=== PATIENT | female | born 1930 | race Caucasian/White ===

== ENCOUNTER 2016-06-26 08:25 | Inpatient (IN) | payer OTHER ==
--- NOTE | 2016-06-22 11:27 | EKG Report ---
Test Performed on : 06/22/2016 09:42:52 AM Test Reason : PAT Blood Pressure : / mmHG Vent. Rate : 069 BPM Atrial Rate : 069 BPM P-R Int : 208 ms QRS Dur : 102 ms QT Int : 394 ms P-R-T Axes : 055 023 051 degrees QTc Int : 422 ms Sinus rhythm. with frequent premature ventricular complexes. in a pattern of bigeminy. Otherwise normal ECG When compared with ECG of 03-OCT-2010 12:47, premature ventricular complexes. are now present Confirmed by Fer BORJA, Ricardo Majano ([id number]) on 06/23/2016 8:23:53 AM
[2016-08-15 09:38] LABS: MANUAL DIFF NEEDED? NO
[2016-08-15 09:42] LABS: BASO% 0.9 % (0.0-0.8); EOS# 0.19 X1000 (0.0-0.7); EOS% 2.4 % (0.0-10.0); HEMATOCRIT 38.8 % (37.0-47.0); LYMPH# 2.52 X1000 (1.2-3.4); LYMPH% 31.4 % (20.5-51.1); MCH 32.6 PG (27-31); MCHC 33.5 g/dL (33-37); MCV 97.2 FL (81-99); MONO# 1.03 X1000 (0.11-0.59); MONO% 12.8 % (1.7-9.3); MPV 10.5 FL (7.4-10.4); NEUT% 52.5 % (42.2-75.2); PLT 221 X1000 (130-400); RBC 3.99 XMIL (4.2-5.4)
[2016-08-15 09:45] LABS: URINE SOURCE CLEAN CATCH
[2016-08-15 09:48] LABS: BILIRUBIN URINE NEGATIVE (NEGATIVE); BLOOD URINE TRACE-LYSED (NEGATIVE); CLARITY CLEAR (CLEAR); COLOR YELLOW; GLUCOSE URINE NEGATIVE (NEGATIVE); LEUKOCYTES URINE SMALL (NEGATIVE); NITRITE URINE NEGATIVE (NEGATIVE); PROTEIN URINE NEGATIVE (NEGATIVE); SP GRAVITY URINE 1.015; UROBILINOGEN URINE 0.2 EU/dL (0.2-1.0)
[2016-08-15 09:51] LABS: URINE EPITHELIAL CELLS <10 /HPF (<10); URINE RBC <10 /HPF (<10); URINE WBC <10 /HPF (<10)
[2016-08-15 10:09] LABS: INR 1.02; PROTIME 10.8 Seconds (9.2-11.7); PTT 27.3 Seconds (22.0-36.0)
[2016-08-15 10:11] LABS: CALCIUM 9.2 mg/dL (8.8-10.2); POTASSIUM 4.5 mmol/L (3.5-5.1)
[2016-08-21] MEDS ORDERED: REGLAN ONE (05:39)
[2016-08-21] MEDS ORDERED: PEPCID ONE (05:39)
[2016-08-21] MEDS ORDERED: LR 1,000 ML ONE ×2 (05:40→10:01)
[2016-08-21] MEDS ORDERED: COLACE ONE (05:40)
[2016-08-21] MEDS ORDERED: LYRICA ONE (05:40)
[2016-08-21] MEDS ORDERED: KEFZOL 2 GM/D5W 50 ML ONE (05:41)
[2016-08-21] MEDS ORDERED: TORADOL ONE (07:15)
[2016-08-21] MEDS ORDERED: DURAMORPH ONE (07:15)
[2016-08-21] MEDS ORDERED: VANCOMYCIN ONE (07:16)
[2016-08-21] MEDS ORDERED: MARCAINE 0.25% PF/EPI 1:200,000 ONE (07:16)
[2016-08-21] MEDS ORDERED: SODIUM CHLORIDE 0.9% ONE (07:16)
[2016-08-21] MEDS ORDERED: EXPAREL 1.3% ONE (07:17)
[2016-08-21] MEDS ORDERED: BACITRACIN ONE (07:18)
[2016-08-21] MEDS ORDERED: CYKLOKAPRON 1,000 MG/NS 100 ML ONE (07:21)
--- NOTE | 2016-08-21 07:29 | HISTORY AND PHYSICAL ---
CHIEF COMPLAINT: Right knee pain. HISTORY OF PRESENT ILLNESS: Ms. Stephens is an 86-year-old white female with a history of right knee pain for about 5 months. She states that her knee has been bothering her for about 5 months, so she went to the office. X-rays obtained of the right knee reveal images consistent with advanced degenerative joint disease. Despite conservative therapy, her knee still gives her problems. She is being admitted to the hospital today for a right total knee arthroplasty. PAST MEDICAL HISTORY: Hypertension, history of heart valve problems. History of peptic ulcer disease. Acid reflux. Hypothyroidism. Osteoarthritis, gout. SURGICAL HISTORY: 1. Left total knee arthroplasty. 2. Cholecystectomy. 3. Tonsils and adenoids. 4. Cataracts. FAMILY HISTORY: Noncontributory. SOCIAL HISTORY: She is . She denies using tobacco and alcohol. CURRENT HOME MEDICATIONS: 1. [place]-3 fish oil, 1000 mg capsule p.o. daily. 2. Antivert 12.5 mg p.o. p.r.n. 3. Famotidine 20 mg p.o. b.i.d. 4. Synthroid 50 mcg p.o. daily. 5. Folic acid, multivitamin and iron capsule 1 p.o. daily. 6. Aspirin 81 mg p.o. daily. 7. Lisinopril 10 mg p.o. daily. 8. Advil 200 mg p.o. daily. 9. Vitamin B6 at 50 mg p.o. daily. 10. Ocuvite 1 p.o. daily. ALLERGIES: Adhesive tape. Bacitracin, ciprofloxacin, sulfa, Benadryl, tape, Polysporin, opioids, clarithromycin. PRIMARY CARE PROVIDER: Dr. Rangel. REVIEW OF SYSTEMS: HEENT: Patient denies any problems with the head, ears, eyes, nose, throat. Reports having glasses. Having cataract surgery in the past as well as lower dentures. Cardiac: Patient denies any heart problems ever. Denies any history of syncope or shortness of breath. Pulmonary: The patient denies any lung problems, any wheezing or coughing. Gastrointestinal: Patient reports having peptic ulcer disease currently, but denies any nausea, vomiting, diarrhea. Genitourinary: The patient reports having bladder tack in the past. Reports that her bladder has dropped and she needs that surgery again. Neurological: The patient reports some left leg tingling occasionally. Denies any neurological deficits. Musculoskeletal: The patient reports right knee pain, as well as some back and neck pain occasionally. PHYSICAL EXAMINATION: GENERAL: She is laying in bed. She is articulate and able to answer questions appropriately. HEENT: Head is normocephalic, atraumatic. Pupils equal, round, reactive to light. Nares patent. Throat without exudate. CARDIAC: S1-S2 auscultated. No murmur, rub or gallop noted. LUNGS: Clear to auscultation bilaterally in all ham. GASTROINTESTINAL: Abdomen is soft, nontender, nondistended. Bowel sounds present in all quadrants. GENITOURINARY: Not examined. NEUROLOGICAL: The patient has good sensation to dull touch in all extremities. Cranial nerves 2- 12 grossly intact. MUSCULOSKELETAL: On physical examination of the right knee, the patient has pain with passive range of motion, as well as pain with palpation of the right knee. Observation of the left knee reveals old scar from her left total knee arthroplasty. IMPRESSION: Osteoarthritis of the right knee. PLAN: Right total knee arthroplasty. The risks, benefits, and alternatives of the surgery were discussed with the patient including risk of anesthesia, bleeding, damage to blood vessels, nerves, tendons, ligaments. Possibility of infection and other imponderables were discussed. The patient agrees to proceed with surgery at this time. Dictated by JOSELYN Kearns for Otoniel Regalado MD
[2016-08-21 08:25] LABS: URINE MICRO REVIEW NEEDED? NO; URINE SOURCE CATH
[2016-08-21 08:29] LABS: BILIRUBIN URINE NEGATIVE (NEGATIVE); BLOOD URINE NEGATIVE (NEGATIVE); COLOR YELLOW; GLUCOSE URINE NEGATIVE (NEGATIVE); LEUKOCYTES URINE NEGATIVE (NEGATIVE); NITRITE URINE NEGATIVE (NEGATIVE); PROTEIN URINE NEGATIVE (NEGATIVE); SP GRAVITY URINE 1.018; TURBIDITY URINE CLEAR (CLEAR); UR EPITHELIAL CELLS <10 /HPF (<10); URINE BACTERIA NEGATIVE /HPF; URINE RBC <10 /HPF (<10); URINE WBC <10 /HPF (<10); UROBILINOGEN URINE NORMAL (NORMAL)
[2016-08-21] MEDS ORDERED: NS 1,000 ML ONE (09:19)
[2016-08-21] MEDS ORDERED: VERSED ONE (09:43)
[2016-08-21] MEDS ORDERED: FENTANYL ONE (09:44)
[2016-08-21] MEDS ORDERED: DECADRON ONE (10:01)
[2016-08-21] MEDS ORDERED: ZOFRAN ONE (10:01)
[2016-08-21] MEDS ORDERED: EXTENSION SET 32 IN 4522 ONE (10:01)
[2016-08-21] MEDS ORDERED: OFIRMEV 1000 MG/ISOTONIC SOLN 100 ML ONE (10:01)
--- NOTE | 2016-08-21 10:40 | OPERATIVE NOTE ---
PROCEDURE DATE: 08/21/2016 PREOPERATIVE DIAGNOSIS: Right knee degenerative joint disease. POSTOPERATIVE DIAGNOSIS: Right knee degenerative joint disease. PROCEDURE: Right total knee arthroplasty using [place] [employer] size 3 femoral component, size 3 tibial base plate, a 13 mm articular insert, and an asymmetrical 32 mm patellar component. ANESTHESIA: Spinal. SURGEON: Otoniel Regalado MD LOG MANAGER: 1. JOSELYN Kearns 2. Tyler Montanez RN COMPLICATIONS: None. BLOOD LOSS: Minimal. DRAINS: Hemovac x1. DESCRIPTION OF PROCEDURE: The patient was brought to the operative suite and placed in supine position. After satisfactory administration of spinal anesthesia, a well-padded tourniquet was placed on the right proximal thigh and the right lower extremity was prepped and draped in the usual sterile fashion. A longitudinal incision was made beginning at the superior pole of the patella and extended distally to the tibia tuberosity. It was dissected sharply through the skin and full-thickness skin flaps were elevated medially and laterally. A medial arthrotomy was made with a vastus snip. The medial capsule was elevated off the medial tibial plateau. The prepatellar fat pad, ACL, PCL, medial meniscus, and lateral meniscus were excised. A drill was entered in the center of the distal femur. An intramedullary guide was placed. Distal cutting block was pinned into place. The distal cut was made with the oscillating saw. The femur was sized to size 3. A size 3 guide was pinned into place and the anterior cuts, chamfer cuts, and posterior condylar cuts were made with the oscillating saw. Marginal osteophytes were removed with a rongeur. A box cutting block was pinned into place. A box cut was made with a box osteotome and oscillating saw. Posterior condylar osteophytes removed with the curved osteotome and rongeur. Attention was then directed to the tibia. A drill was entered in the center of the tibia. An intramedullary guide was placed. Alignment was checked with a drop mohan, referencing off the anterior cortex of the tibia and the second ray of the foot, taking 2 mm off the low side of the tibia, which in this case was medially. The tibial cutting block was pinned into place and the articular surface of the tibial plateau was removed with an oscillating saw. The flexion- extension gaps were checked and balanced at 13 mm. The tibia sized to size 3. A size 3 guide was used for the fin punch. The tibial trial, femoral trial, and 13 mm articular insert were placed, taken through range of motion, found to have excellent alignment, and balancing and range of motion. Attention was then directed to the patella and 9 mm of the articular surface of the patella were removed with an oscillating saw. The patella was sized to a size 5, a size asymmetrical 32. A size asymmetrical 32 guide was used to drill peg holes. The lateral facet was chamfered 30 to 45 degrees. Patella trial was placed, taken through range of motion, found to have excellent patella tracking. All trials were then removed. Knee was copiously irrigated and dried, being certain all bone debris was removed. The tibial component, femoral component, patellar component were cemented into place. Excess cement being removed with a [place]. Once the cement had hardened, excess cement was again removed with an osteotome. The knee was again copiously irrigated and dried, being certain all bone and cement debris were removed. The trial articular insert was removed. The knee was copiously infiltrated with Exparel including the posterior capsule, anterior capsule, medial and lateral collateral ligaments, anterior musculature, and subcutaneous tissue. Then the definitive 13 mm articular insert was locked in place. The knee was again taken through range of motion and again found to have excellent alignment, balancing, range of motion, and patellar tracking. A drain was placed exiting superior laterally and buried in the lateral gutter. The medial arthrotomy was closed with 0 Vicryl. Skin edge approximated with 2-0 Vicryl. Skin was closed with skin amandeep and a sterile dressing was applied. The patient tolerated the procedure well without complication. At the end of the procedure, all counts correct x2. The patient was transferred to the recovery room in stable condition.
[2016-08-21] MEDS ORDERED: ZOFRAN IV PRN (11:15)
[2016-08-21] MEDS ORDERED: MILK OF MAGNESIA PO PRN (11:15)
[2016-08-21] MEDS ORDERED: AMBIEN PO PRN (11:15)
[2016-08-21] MEDS ORDERED: DEMEROL IV PRN (11:25)
[2016-08-21] MEDS ORDERED: OXY IR PO PRN (11:30)
[2016-08-21] MEDS ORDERED: ANTIVERT PO PRN (11:33)
[2016-08-21] MEDS: ULTRAM PO SCH ×3 (12:14→23:40)
[2016-08-21] MEDS: NS 1,000 ML IV SCH ×2 (12:16→21:32)
[2016-08-21] MEDS: TYLENOL PO SCH ×2 (16:12→21:32)
[2016-08-21] MEDS: KEFZOL 2 GM/D5W 50 ML IV SCH ×2 (16:12→23:29)
[2016-08-21] MEDS ORDERED: SYNTHROID PO SCH (21:00)
[2016-08-21] MEDS: LYRICA PO SCH (21:32)
[2016-08-21] MEDS: COLACE PO SCH (21:33)
[2016-08-21] MEDS: PEPCID PO SCH (21:33)
[2016-08-21] MEDS: PERIDEX MT SCH (21:33)
[2016-08-22] MEDS: NS 1,000 ML IV SCH (04:43)
[2016-08-22] MEDS: TYLENOL PO SCH ×2 (05:00→13:47)
[2016-08-22] MEDS: ULTRAM PO SCH ×2 (05:00→13:47)
[2016-08-22] MEDS ORDERED: XARELTO PO SCH (06:00)
[2016-08-22 06:22] LABS: HEMATOCRIT 29.3 % (37.0-47.0); HEMOGLOBIN 9.5 g/dL (12.0-16.0)
[2016-08-22 06:32] LABS: CALCIUM 7.9 mg/dL (8.8-10.2); POTASSIUM 5.2 mmol/L (3.5-5.1)
[2016-08-22] MEDS ORDERED: SYNTHROID PO SCH (07:00)
[2016-08-22] MEDS ORDERED: FISH OIL CONCENTRATE PO SCH (09:00)
[2016-08-22] MEDS ORDERED: PRINIVIL PO SCH (09:00)
[2016-08-22] MEDS ORDERED: PYRIDOXINE PO SCH (09:00)
[2016-08-22] MEDS ORDERED: OCUVITE LUTEIN & ZEAXANTHIN PO SCH (09:00)
[2016-08-22] MEDS ORDERED: MOBIC PO SCH (09:00)
[2016-08-22] MEDS ORDERED: PEPCID PO SCH (09:00)
[2016-08-22] MEDS ORDERED: DECADRON IV ONE (09:00)
[2016-08-22] MEDS ORDERED: THERA M PLUS PO SCH (09:00)
[2016-08-22] MEDS: COLACE PO SCH (09:53)
[2016-08-22] MEDS: LYRICA PO SCH (09:53)
[2016-08-22] MEDS: PEPCID PO SCH (09:53)
[2016-08-22] MEDS: PERIDEX MT SCH (09:54)
[2016-08-22 11:52] VITALS: BP 102/47
--- NOTE | 2016-08-22 20:41 | DISCHARGE SUMMARY ---
ADMISSION DATE: 08/21/2016 DISCHARGE DATE: 08/22/2016 DISCHARGE DIAGNOSIS: Right knee degenerative joint disease status post right total knee arthroplasty. DISCHARGE MEDICATIONS: See discharge medication list. DISPOSITION: Patient discharged home with home health and physical therapy. DISCHARGE INSTRUCTIONS: 1. Instructed to return for any signs or symptoms of infection, deep venous thrombosis. 2. Instructed to return to see Dr. Regalado in 10 days. HOSPITAL COURSE: On the day of admission, the patient underwent a right total knee arthroplasty. Her postoperative course was unremarkable. At discharge, she is afebrile, tolerating a regular diet, ambulating well with physical therapy. Her wound is clean, dry, intact without sign of infection. She is discharged home in stable condition with instructions to follow up as described above.
== END 2016-08-22 14:22 | disposition home health service (06) | DRG 470 ==
LOC: SURHOLD 08-21 02:30 → 4N 08-21 08:13
PROVIDERS: ADMIT Orthopaedic Surgery; ATTEND Orthopaedic Surgery
PROC: 0SRC0J9 Replacement of Right Knee Joint with Synthetic Substitute, Cemented, Open Approach (ICD-10-PCS; principal; 2016-08-21 07:20)
DX: M17.9 Osteoarthritis of knee, unspecified (principal); I12.9 Hypertensive chronic kidney disease with stage 1 through stage 4 chronic kidney disease, or unspecified chronic kidney disease; Z87.11 Personal history of peptic ulcer disease; E03.9 Hypothyroidism, unspecified; Z96.652 Presence of left artificial knee joint; M10.9 Gout, unspecified; N18.9 Chronic kidney disease, unspecified; Z87.891 Personal history of nicotine dependence; Z79.82 Long term (current) use of aspirin; Z79.899 Other long term (current) drug therapy; K21.9 Gastro-esophageal reflux disease without esophagitis
CPT/HCPCS: 80048; 81001; 85014; 85018; 85025; 85610; 85730; 86850; 86900; 86901; 88305; 88311; 93005; 93010; 94799; C9290; J0131; J0690; J1100; J1885; J2250; J2274; J2405; J3010; J3370; J7030; J7120; S0020; 97110-GP; 97116-GP; 97530-GP